=== PATIENT | female | born 1995 | race African-American/Black ===

== ENCOUNTER 2017-06-22 15:28 | Emergency (ER) | payer MEDICAID ==
[~2017-06-22] VITALS: Ht 160 cm; Wt 71.0 kg
[~2017-06-22 15:28] MED LIST: ALBU25PO2
[2017-06-22] MEDS ORDERED: IBUPROFEN 800MG TABLET PO ONE (16:15)
[2017-06-22 16:50] VITALS: BP 178/100
== END 2017-06-22 18:49 | disposition home or self-care (01) ==
LOC: ER 15:28
DX: R51 Headache (principal); V89.2XXA Person injured in unspecified motor-vehicle accident, traffic, initial encounter; F17.200 Nicotine dependence, unspecified, uncomplicated; J45.909 Unspecified asthma, uncomplicated; Y92.410 Unspecified street and highway as the place of occurrence of the external cause
CPT/HCPCS: 81025; 99282